=== PATIENT | male | born 1960 | race Caucasian/White ===

== ENCOUNTER 2021-05-31 21:46 | Emergency (ER) | payer OTHER, SELFPAY ==
[2021-05-31 21:55] VITALS: BP 131/72; PULSE 78; RESP 17; TEMP 36.1; O2SAT 94; BMI 41.7
--- NOTE | 2021-05-31 23:19 | ED_ITS ---
HPI - Extremity Injury (Upper) General Chief Complaint: Extremity Injury, Upper Stated Complaint: finger injury Time Seen by Provider: 05/31/21 22:28 Source: patient Mode of arrival: Ambulatory Limitations: no limitations History of Present Illness HPI narrative: 61M nonsmoker with noncontributory medical history presents for evaluation of a work related R thumb injury. He was reaching into a wooden drawer and got and got a splinter in the tip of his R thumb earlier today. He was able to remove a large portion of the splinter, but wanted to be sure there wasn't any piece left. He denies any numbness, tingling or weakness. He has full range of motion of all fingers on his hand. His tetanus is up-to-date. Related Data Previous Rx's Medication Instructions Recorded cephalexin 500 mg capsule 500 mg PO Q6H 7 Days #28 cap 05/31/21 Allergies Allergy/AdvReac Type Severity Reaction Status Date / Time No Known Drug Allergies Allergy Verified 05/31/21 21:58 Review of Systems Review of Systems Narrative: GENERAL: Denies chills, fatigue, malaise, fever, sweats. HEENT: Denies sinus pain, ear pain, sore throat, difficulty swallowing, dizziness. RESPIRATORY: Denies dyspnea, cough, wheezing, hemoptysis, sputum. CARDIOVASCULAR: Denies chest pain, palpitations, orthopnea, edema, GASTROINTESTINAL: Denies nausea, vomiting, abdominal pain, diarrhea, constipation, melena. : Denies dysuria, frequency, incontinence, hematuria, urinary retention. MUSCULOSKELETAL: see HPI SKIN: Denies rash, skin lesions, or other NEUROLOGIC: Denies weakness, headache, numbness, change in speech, confusion, seizures, incoordination. PSYCHIATRIC: No concerning psychosocial issues. 12 point review of systems is negative except for those stated above Patient History Social History Smoking Status: Never smoker Smoking Status: Never smoker alcohol intake frequency: holidays/special occasions only Substance Use Type: does not use Exam Narrative Exam Narrative: GEN: AOx3 and in mild distress EYES: Pupils are equal, round, and reactive to light and accommodation. Extraoccular muscles are intact bilaterally. There is no subconjunctival hemorrhage or exudate. CHEST: Lungs are clear to auscultation bilaterally and free of wheezes, rales, or rhonchi. Heart rate is regular rhythm, there are no murmurs, clicks, rubs, or gallops. There is no chest wall tenderness. ABD: Abdomen is soft and nontender. There is no guarding or rebound. Bowel sounds are normal in all 4 quadrants. There is no mass or organomegaly. EXT: Full painless ROM of all extremities with no loss of sensation or strength. SKIN: Warm, pink, and dry. No erythema or rash Initial Vital Signs Initial Vital Signs: Vital Signs Temperature 97 F L 05/31/21 21:55 Pulse Rate 78 05/31/21 21:55 Respiratory Rate 17 05/31/21 21:55 Blood Pressure 131/72 05/31/21 21:55 Pulse Oximetry 94 05/31/21 21:55 Course Orders Ordered: Discontinued Medications Cefazolin Sodium (Cephalexin 250 Mg Prepack) 1 bottle MIS SEEINSTR ONE Stop: 05/31/21 23:46 Last Admin: 06/01/21 00:06 Dose: 500 mg Documented by: THU Vital Signs Vital signs: Vital Signs - 8 hr 05/31/21 21:55 Temperature 97 F L Pulse Rate 78 Respiratory Rate 17 Blood Pressure 131/72 Pulse Oximetry 94 MDM - Extremity Injury (Upper) Imaging Data Extremity x-ray #1: Radiologist's Impression: [address] [address] XRay Report Signed Patient: Chi Irving MR#: [id number] : 1960 Acct:[id number] Age/Sex: 61 / M Date of Service: 05/31/21 Loc: ED Accession Number: [id number] ?? Procedure: XR finger RT min 2V PROCEDURE:? XR FINGER RT MIN 2V ? INDICATIONS:? possible foreign body ? TECHNIQUE:? AP hand, 2 views of the right thumb finger(s) acquired.? ? COMPARISON:? None. ? FINDINGS:? ? Bones:? No acute fractures or dislocations.? No suspicious bony lesions.? ? Soft tissues:? No suspicious soft tissue calcifications.? Mild soft tissue swelling of the right thumb.? No radiopaque soft tissue foreign bodies. ? ? IMPRESSION:? Mild soft tissue swelling of the right thumb without underlying fracture, dislocation, or radiopaque soft tissue foreign bodies. ? ? Dictated by: Rob Bailey M.D. on 05/31/2021 at 23:47 ? ? Approved by: Rob Bailey M.D. on 05/31/2021 at 23:48 ? [facility] Narrative Medical decision making narrative: Patient with puncture wound and removal of wooden foreign body at home. Physical exam is very reassuring and there is no palpable retained foreign body. Imaging was acquired and no obvious foreign body noted, though foot is unlikely to show up. Patient's tetanus is current. His pain is well controlled, no neurologic deficits. Extensive return precautions including potential of retained foreign body, potential of infection despite our best efforts. Return precautions reported to be understood as evidence by patient's ability to recite and back. Questions answered to his apparent satisfaction Discharge Plan Departure Patient Disposition: Home Clinical Impression: Puncture wound of thumb Qualifiers: Encounter type: initial encounter Laterality: right Qualified Code(s): S61.031A - Puncture wound without foreign body of right thumb without damage to nail, initial encounter Activity Restrictions/Additional Instructions: *You have been diagnosed with [ Right thumb puncture. There is no obvious retained foreign body, but we will treat with an antibiotic and encourage you to follow up closely to be safe ] *What to do: *Please continue to take your regular medications as directed. [x ] New medication prescriptions sent to your pharmacy: [[facility] in on [address] ] [ ] New medication written as a paper prescription [ ] No new medications given *Please follow up with your primary care provider in 2-3 days, call for an appointment. Let them know you were seen in the Emergency Department and that we ask that you be seen in follow up. We will electronically transmit a record of today's note if your PCP is in our system *If you do not have a primary care provider please contact the [facility] Resource line at [phone]. They will ask some questions about your medical history and help get you set up with a doctor in the community. *Return to Emergency Department if you should have any new, worsening or concerning symptoms, such as [fever greater than 101 F, shaking chills, worsening pain, persistent vomiting or other bothersome symptoms] Prescriptions: New cephalexin 500 mg capsule 500 mg PO Q6H 7 Days Qty: 28 RF: 0
--- NOTE | 2021-05-31 23:24 | DI.RAD.S_ITS ---
PROCEDURE: XR FINGER RT MIN 2V INDICATIONS: possible foreign body TECHNIQUE: AP hand, 2 views of the right thumb finger(s) acquired. COMPARISON: None. FINDINGS: Bones: No acute fractures or dislocations. No suspicious bony lesions. Soft tissues: No suspicious soft tissue calcifications. Mild soft tissue swelling of the right thumb. No radiopaque soft tissue foreign bodies. IMPRESSION: Mild soft tissue swelling of the right thumb without underlying fracture, dislocation, or radiopaque soft tissue foreign bodies. Dictated by: Rob Bailey M.D. on 05/31/2021 at 23:47 Approved by: Rob Bailey M.D. on 05/31/2021 at 23:48
[2021-06-01] MEDS: cephALEXin 250 MG PREPACK 1 BOTTLE MISC (00:06)
== END 2021-06-01 00:11 | disposition home or self-care (01) ==
PROVIDERS: Emergency Provider Emergency Medicine
DX: S61.031A Puncture wound without foreign body of right thumb without damage to nail, initial encounter (principal); W45.8XXA Other foreign body or object entering through skin, initial encounter; Y99.0 Civilian activity done for income or pay
CPT/HCPCS: 73140; 99281; 99283